=== PATIENT | female | born 2005 | race Caucasian/White ===

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

== ENCOUNTER → 2023-09-08 13:45 | Outpatient (BNVA) | payer MEDICAID, SELFPAY | PROVIDERS: PCP Physician Assistant Medical; Visit Provider Obstetrics & Gynecology | DX: N92.6 Irregular menstruation, unspecified (principal); N93.9 Abnormal uterine and vaginal bleeding, unspecified; N94.6 Dysmenorrhea, unspecified | CPT/HCPCS: 85025 ==

== ENCOUNTER 2024-08-26 09:41 | Outpatient (CLI) | payer MEDICAID, SELFPAY ==
[2024-08-26 12:30] LABS: Partial Thromboplastin Time 22.7 Seconds (23.9-36.7)
[2024-08-26 12:31] LABS: PT 50/50 Mix 12.6 Seconds (12.0-15.1); PTT 50/50 MIX 24.5 Seconds (23.9-36.7); Prothrombin Time (Patient) 12.7 Seconds (12-15.1)
== END 2024-08-26 09:42 | disposition home or self-care (01) ==
LOC: LAB 09:42
PROVIDERS: Visit Provider Obstetrics & Gynecology
DX: N92.6 Irregular menstruation, unspecified (principal); E28.2 Polycystic ovarian syndrome
CPT/HCPCS: 36415; 84146; 84443; 85025; 85240; 85245; 85246; 85610; 85611; 85730